=== PATIENT | female | born 1955 | race Two or more races ===

== ENCOUNTER 2017-03-13 16:34 | Emergency (ER) | payer OTHER ==
[~2017-03-13] VITALS: Ht 160 cm; Wt 72.6 kg
[2017-03-13 16:44] VITALS: BP 167/88
[2017-03-13 17:48] VITALS: BP 135/82
--- NOTE | 2017-03-13 17:56 | Emergency Room Report ---
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 Patient fell back and hit back of head and "saw stars"but denies open wound, LOC, nausea/vomiting, dizziness or neck pain. Denies pain to any extremity. Not on ASA or other AC Denies extremity weakness. Allergies: Coded Allergies: SULFAMETHOXAZOLE (Verified Allergy, Unknown, 03/13/17) TRIMETHOPRIM (Verified Allergy, Unknown, 03/13/17) Uncoded Allergies: PENICILLIN (Allergy, Unknown, 03/13/17) SULFA (Allergy, Unknown, 03/13/17) Patient History Past Medical History: none Past Surgical History: none Pertinent Family History: none Social History: Denies: alcohol use, drug use, smoking Now: No Immunizations: UTD Reviewed Nursing Documentation: PMH: Agreed, PSxH: Agreed Nursing Documentation-PMH Past Medical History: No Stated History Review of Systems All Other Systems: negative except mentioned in HPI Physical Exam Vital Signs Date Time Temp Pulse Resp B/P Pulse Ox O2 Delivery O2 Flow Rate FiO2 03/13/17 16:36 98.2 95 14 167/88 100 Room Air Sp02 EP Interpretation: reviewed, abnormal General Appearance: normal inspection, well appearing, no apparent distress, alert, GCS 15, non-toxic Head: normocephalic, other - small occipital hematoma, 2-3 cm. No abrasion or laceration Eyes: bilateral eye EOMI, bilateral eye PERRL ENT: normal ENT inspection, hearing grossly normal, normal voice Neck: normal inspection, full range of motion, supple, thyroid normal, no meningismus, no bony tend, other - No midline c-spine ttp or reduced ROM of neck Respiratory: normal inspection, lungs clear, normal breath sounds, no respiratory distress, no retraction, no wheezing Cardiovascular #1: regular rate, rhythm, no edema Gastrointestinal: normal inspection, normal bowel sounds, non tender, soft, no guarding, no hernia Genitourinary: no CVA tenderness Musculoskeletal: normal inspection, back normal, normal range of motion, Muna' s Sign negative Neurologic: normal inspection, alert, oriented x3, responsive, safety assistant III-XII nml as tested, motor strength/tone normal, speech normal Psychiatric: normal inspection, judgement/insight normal, mood/affect normal Skin: normal inspection, normal color, no rash Lymphatic: normal inspection Medical Decision Making Diagnostic Impression: Primary Impression: Contusion Qualified Codes: S00.83XA - Contusion of other part of head, initial encounter ER Course - Initially tachycardic d/t headache. Improved with tylenol - No focal neuro deficits - No open wounds - CT head negative for acute traumatic injury Feels better after tylenol DC home Last Vital Signs Date Time Temp Pulse Resp B/P Pulse Ox O2 Delivery O2 Flow Rate FiO2 03/13/17 17:48 72 16 135/82 99 Room Air 03/13/17 16:44 98.2 Status: improved Disposition: HOME, SELF-CARE Condition: Improved Patient Instructions: Facial or Scalp Contusion, [id number] Additional Instructions: - Take tylenol only for pain OR apply ice - Return immediately to ER for any worsening pain, vomiting, or change in mental status - Go to your primary care doctor for recurrent headaches, dizziness for Neurology referral JAZLYN ZAMBRANO M.D. Mar 13, 2017 17:56
--- NOTE | 2017-03-14 09:15 | Diagnostic Imaging Report ---
Indications: Pain Technique: Spiral acquisitions obtained through the brain. Angled axial and coronal 5 x 5 mm slices were reconstructed. Total dose length product 1390 mGycm. CTDI vol(s) 70 mGy. Dose reduction achieved using automated exposure control Comparison: None Findings: . No mass effect or midline shift. There is left high parietal scalp soft tissue swelling. Intact calvarium. Visualized orbits and sinuses are unremarkable. Impression: Evidence of left parietal scalp soft tissue injury Negative for acute intracranial bleed or mass effect This agrees with the preliminary interpretation provided overnight by Dr. Méndez The CT scanner at [facility] is accredited by the [employer] and the scans are performed using protocols designed to limit radiation exposure to as low as reasonably achievable to attain images of sufficient resolution adequate for diagnostic evaluation.
== END 2017-03-13 18:00 | disposition home or self-care (01) ==
LOC: EMR 17:10
DX: S00.03XA Contusion of scalp, initial encounter (principal); W01.0XXA Fall on same level from slipping, tripping and stumbling without subsequent striking against object, initial encounter; Y92.89 Other specified places as the place of occurrence of the external cause; Z88.0 Allergy status to penicillin; Z88.2 Allergy status to sulfonamides
CPT/HCPCS: 70450; 99284